=== PATIENT | male | born 1975 ===

== ENCOUNTER 2017-03-21 00:58 | Observation (INO) | payer OTHER ==
--- NOTE | 2017-03-21 02:12 | ED PDOC ---
Arrival/HPI - General Chief Complaint: Lower Extremity Problem/Injury Time Seen by Provider: 03/21/17 01:47 Historian: Patient, Gis Analyst Developer (Nurse) - History of Present Illness Narrative History of Present Illness (Text): 03/21/17 02:11 41 year old male presents to the emergency department for left lower leg swelling that began three days upon arrival. Patient reports that the swelling began at the middle and started spreading around whole lower leg. Patient denies any trauma, fever, chills, chest pain, shortness of breath, nausea, vomiting, diarrhea, urinary symptoms, back pain, neck pain, headache, dizziness , or any other complaints. PMD: None Gis Analyst Developer: Nurse Time/Duration: Other (began 3 days ago) Symptom Onset: Gradual Symptom Course: Unchanged Activities at Onset: Light Context: Home Past Medical History - Travel History Have you recently traveled outside [place] w/in the past 3 mons?: Yes - Psychiatric Hx Substance Use: No Family/Social History - Physician Review Nursing Documentation Reviewed: Yes Family/Social History: No Known Family HX Smoking Status: no Hx Alcohol Use: Yes Frequency of alcohol use: Daily Hx Substance Use: No Allergies/Home Meds Allergies/Adverse Reactions: Allergies No Known Allergies Allergy (Verified 03/21/17 01:07) Home Medications: Home Meds Medication Instructions Recorded Confirmed No Known Home Med 03/21/17 03/21/17 Review of Systems - Physician Review All systems were reviewed & negative as marked: Yes - Review of Systems Constitutional: absent: Fevers, Other (Chills) Respiratory: absent: SOB Cardiovascular: absent: Chest Pain Gastrointestinal: absent: Diarrhea, Nausea, Vomiting Genitourinary Male: absent: Dysuria, Frequency, Hematuria Musculoskeletal: Other (left lower leg swelling). absent: Back Pain, Neck Pain Neurological: absent: Headache, Dizziness Physical Exam Vital Signs Reviewed: Yes Vital Signs Temp Pulse Resp BP Pulse Ox 03/21/17 04:14 98.4 F 74 18 97/58 L 98 03/21/17 01:08 98.2 F 85 18 108/62 98 Temperature: Afebrile Blood Pressure: Normal Pulse: Regular Respiratory Rate: Normal Appearance: Positive for: Well-Appearing, Non-Toxic, Comfortable Pain Distress: None Mental Status: Positive for: Alert and Oriented X 3 - Systems Exam Head: Present: Atraumatic, Normocephalic Pupils: Present: PERRL Extroacular Muscles: Present: EOMI Conjunctiva: Present: Normal Mouth: Present: Moist Mucous Membranes Neck: Present: Normal Range of Motion Respiratory/Chest: Present: Clear to Auscultation, Good Air Exchange. No: Respiratory Distress, Accessory Muscle Use Cardiovascular: Present: Regular Rate and Rhythm, Normal S1, S2. No: Murmurs Abdomen: Present: Normal Bowel Sounds. No: Tenderness, Distention, Peritoneal Signs Back: Present: Normal Inspection Upper Extremity: Present: Normal Inspection. No: Cyanosis, Edema Lower Extremity: Present: Tenderness (diffuse left lower leg tenderness), Erythema, Other (left lower leg warm to touch ) Neurological: Present: GCS=15, CN II-XII Intact, Speech Normal Skin: Present: Warm, Dry, Normal Color. No: Rashes Psychiatric: Present: Alert, Oriented x 3, Normal Insight, Normal Concentration Medical Decision Making ED Course and Treatment: 03/21/17 02:11 Impression: 41 year old male presents for left lower leg tenderness that began three days ago. Plan: -- Labs -- Blood Cultrue -- Duplex Lower Extremity vein left Ultrasound -- Reassess and disposition Progress Notes: 03/21/17 03:25 EXAM: Duplex Lower Extremity vein left Ultrasound IMPRESSION: Negative 03/21/17 03:[address] Matta who is aware and agrees with the plan. Accepts patient into service. Patient will go to same day surgery center for left lower leg cellulitis. - Lab Interpretations Lab Results: 03/21/17 01:40 03/21/17 01:40 Lab Results 03/21/17 01:40: Sodium 142, Potassium 3.7, Chloride 102, Carbon Dioxide 25, Anion Gap 19, BUN 8, Creatinine 0.6, Est GFR ( Amer) > 60, Est GFR (Non- Af Amer) > 60, Random Glucose 92, Calcium 8.5, Total Bilirubin 0.7, AST 46, ALT 56, Alkaline Phosphatase 109, Total Protein 7.9, Albumin 4.2, Globulin 3.8, Albumin/Globulin Ratio 1.1 03/21/17 01:40: WBC 10.4, RBC 4.40, Hgb 14.3, Hct 40.5 L, MCV 92.0, MCH 32.5, MCHC 35.3, RDW 13.1, Plt Count 340, MPV 9.7, Gran % 61.5, Lymph % (Auto) 26.9, [place] % (Auto) 9.3 H, Eos % (Auto) 2.0, Baso % (Auto) 0.3, Gran # 6.37, Lymph # 2.8, [place] # 1.0 H, Eos # 0.2, Baso # 0.03 I have reviewed the lab results: Yes - RAD Interpretation Radiology Orders: 03/21/17 01:48 DUPLEX LOWER EXTRM VEIN LEFT [US] Stat - Medication Orders Current Medication Orders: Acetaminophen (Tylenol 325mg Tab) 650 mg PO Q6H PRN PRN Reason: Fever >100.4 F Heparin Sodium (Porcine) (Heparin) 5,000 units SC Q12 SAMANTHA PRN Reason: Protocol Multivitamins/Vitamin C 10 ml/Thiamine HCl 100 mg/ Folic Acid 1 mg/ Sodium Chloride 1,011.2 mls @ 100 mls/hr IV .Q10H7M ONE Stop: 03/21/17 14:18 Last Admin: 03/21/17 05:08 Dose: 100 mls/hr eMAR Start Stop Document 03/21/17 05:08 STO (Rec: 03/21/17 05:09 [id number]) Intravenous Solution Start Date 03/21/17 Start Time 05:09 Vancomycin HCl (Vancomycin 1gm) 1 gm in 250 mls @ 167 mls/hr IVPB Q12 SAMANTHA PRN Reason: Protocol Sodium Chloride (Sodium Chloride 0.9%) 1,000 mls @ 100 mls/hr IV .Q10H SAMANTHA Ketorolac Tromethamine (Toradol) 15 mg IVP Q4H PRN PRN Reason: Pain, moderate (4-7) Lorazepam (Ativan) 1 mg IVP Q3H PRN; Protocol PRN Reason: Agitation Pantoprazole Sodium (Protonix Ec Tab) 40 mg PO 0600 SAMANTHA Discontinued Medications Vancomycin HCl (Vancomycin 1gm) 1 gm in 250 mls @ 167 mls/hr IVPB STAT STA PRN Reason: Protocol Stop: 03/21/17 05:05 Last Admin: 03/21/17 03:56 Dose: 167 mls/hr eMAR Start Stop Document 03/21/17 03:56 RD (Rec: 03/21/17 03:56 RD [id number]) Intravenous Solution Start Date 03/21/17 Start Time 03:56 End Date 03/21/17 End time 05:26 Total Infusion Time 90 - Scribe Statement The provider has reviewed the documentation as recorded by the Scribe Smitha Rowell All medical record entries made by the Scribe were at my direction and personally dictated by me. I have reviewed the chart and agree that the record accurately reflects my personal performance of the history, physical exam, medical decision making, and the department course for this patient. I have also personally directed, reviewed, and agree with the discharge instructions and disposition. Disposition/Present on Arrival - Present on Arrival Any Indicators Present on Arrival: No History of DVT/PE: No History of Uncontrolled Diabetes: No Urinary Catheter: No History of Decub. Ulcer: No History Surgical Site Infection Following: None - Disposition Have Diagnosis and Disposition been Completed?: Yes Diagnosis: Left leg cellulitis Disposition: HOSPITALIZED Disposition Time: 03:10 Condition: STABLE
[2017-03-21 02:28] LABS: BASO # 0.03 K/mm3 (0.0-2.0); BASO % 0.3 % (0.0-3.0); EOS # 0.2 (0.0-0.7); GRAN # 6.37 (1.4-6.5); GRAN % 61.5 % (50.0-68.0); HEMATOCRIT 40.5 % (42.0-52.0); LYMPH # 2.8 (1.2-3.4); LYMPH % 26.9 % (22.0-35.0); MEAN CORPUSCULAR HEMOGLOBIN 32.5 pg (25.0-35.0); MEAN CORPUSCULAR HGB CONC 35.3 g/dl (31.0-37.0); MEAN PLATELET VOLUME 9.7 fl (7.0-11.0); MONO % 9.3 % (1.0-6.0); RED CELL DISTRIBUTION WIDTH 13.1 % (11.5-14.5); WHITE BLOOD COUNT 10.4 10^3/ul (4.5-11.0)
[2017-03-21 02:37] LABS: ALB/GLOB RATIO 1.1 (1.1-1.8); ALKALINE PHOSPHATASE 109 U/L (38-126); ALT/SGPT 56 U/L (7-56); AST/SGOT 46 U/L (17-59); BILIRUBIN,TOTAL 0.7 mg/dL (0.2-1.3); BLOOD UREA NITROGEN 8 mg/dL (7-21); CALCIUM 8.5 mg/dL (8.4-10.5); CARBON DIOXIDE 25 mmol/L (21-33); CHLORIDE 102 mmol/L (98-107); GFR AFRICAN-AMERICAN > 60; GLUCOSE,RANDOM 92 mg/dL (70-110); POTASSIUM 3.7 mmol/L (3.6-5.0); SODIUM 142 mmol/L (132-148); TOTAL PROTEIN 7.9 g/dL (5.8-8.3)
[2017-03-21] MEDS ORDERED: Vancomycin 1gm in NS 250ml 1 GM/250 ML BAG IVPB STA (03:36)
[2017-03-21] MEDS ORDERED: Multivitamin (MVI) 10 ML, Thiamine 100 MG, Folic Acid 1 MG in Sodium Chloride 0.9% 1,00... IV ONE (04:12)
--- NOTE | 2017-03-21 04:35 | CP.PCM.HP ---
<LAUREN HUMPHRIES - Last Filed: 03/21/17 04:19> History of Present Illness - History of Present Illness History of Present Illness: Lauren Humphries DO PGY1 - Internal Medicine H&P CC: Left leg pain and swelling HPI: 41yo Ukrainian speaking M with no significant PMH presents to ER complaining of left leg pain, swelling, and redness for the past three days. Roommate at bedside, also contributing to the history. Redness and pain started on mid- anterior funk, and has slowly spread. He also admits to left groin pain. He denies F/C, N/V/D/C, abdominal pain, dysuria, urethral discharge, CP, SOB, PRASAD, dizziness. He also denies any recent trauma, recent travel, camping/walking in tall grass or forests, insect bites, animal bites. He does report that he has dry skin and pruritis in both lower legs for past 2-3 years. Of note, he also reports the he drinks 24 beers twice a week, and has been drinking about as much daily for the past few days. His last drink was yesterday night. PMH: None PSH: None Meds: None FHx: Noncontributory Soc: Denies tobacco or illicits. Drinks 24 beers twice weekly All: NKDA ROS: Constitutional: pt denies fever, chills, generalized weakness ENT: pt denies dysphagia, otalgia, hearing deficit, rhinorrhea Eyes: pt denies sudden loss of vision, diplopia, blurred vision MSK: pt denies muscle stiffness, joint pain, extremity cramping Cardio: pt denies sob, heart murmur, CP Pulm: pt denies cough, hemoptysis, wheeze GI: pt denies loss of appetite, abdominal pain, constipation, melena, n/v/d : pt denies burning on urination, urinary frequency, hematuria, urinary urgency Neuro: pt denies paresis, paresthesia, dizziness, prasad, numbness, tingling Derm: +Pruritis, rash (leg) pt denies skin changes, lesions, nail changes Endo: pt denies intolerance to heat/cold, diaphoresis, night sweats, polydipsia Psych: pt denies anxiety, depression, mood changes Present on Admission - Present on Admission Any Indicators Present on Admission: No Past Patient History - Past Social History Smoking Status: no - PSYCHIATRIC Hx Substance Use: No Meds Allergies/Adverse Reactions: Allergies Allergy/AdvReac Type Severity Reaction Status Date / Time No Known Allergies Allergy Verified 03/21/17 01:07 Physical Exam - Constitutional Appears: Non-toxic, No Acute Distress - Head Exam Head Exam: ATRAUMATIC, NORMOCEPHALIC - Eye Exam Eye Exam: EOMI, Normal appearance, PERRL - ENT Exam ENT Exam: Mucous Membranes Moist - Neck Exam Neck exam: Negative for: Lymphadenopathy, Meningismus, Thyromegaly - Respiratory Exam Respiratory Exam: Clear to Auscultation Bilateral. absent: Rales, Rhonchi, Wheezes - Cardiovascular Exam Cardiovascular Exam: RRR, +S1, +S2 - GI/Abdominal Exam GI & Abdominal Exam: Normal Bowel Sounds, Soft. absent: Tenderness - Extremities Exam Extremities exam: Positive for: pedal edema (left), pedal pulses present. Negative for: calf tenderness Additional comments: Right leg: Anterior funk dry eczematous patches Left leg: Blanchable erythema anterior funk from ankle to knee, warm, tender, nonpitting edema foot to knee Small left shotty inguinal lymphadenopathy - Neurological Exam Neurological exam: Alert, Oriented x3 - Psychiatric Exam Psychiatric exam: Normal Affect, Normal Mood - Skin Skin Exam: Dry Additional comments: see extremity exam Results - Vital Signs Recent Vital Signs: Last Vital Signs Temp 98.2 F 03/21/17 01:08 Pulse 85 03/21/17 01:08 Resp 18 03/21/17 01:08 BP 108/62 03/21/17 01:08 Pulse Ox 98 03/21/17 01:08 - Labs Result Diagrams: 03/21/17 01:40 03/21/17 01:40 Assessment & Plan - Assessment and Plan (Free Text) Assessment: 41yo M with history of alcohol abuse presents with cellulitis of LLE Plan: 1. Left leg pain, 2/2 cellulitis - LE US in ER reportedly negative for DVT, per ER physician; pending official read - Patient afebrile, no leukocytosis at present, but left leg erythema expanding after he received a dose of vancomycin - Continue Vancomycin (d1) - IVF hydration (banana bag, then NS) - Tylenol for fever - Toradol for pain - BCx ordered, pending - ID consulted, appreciate recs 2. Alcohol abuse/withdrawal - Patient reports last drink was last night, does not currently appear intoxicated, or withdrawing - Alcohol level ordered; pending - Banana bag ordered - [facility] protocol - Ativan 1mg Q3H PRN GI/DVT Ppx Patient see, discussed, and reviewed with attending <Saumya Matta - Last Filed: 03/21/17 05:15> Results - Vital Signs Recent Vital Signs: Last Vital Signs Temp 98.2 F 03/21/17 01:08 Pulse 85 03/21/17 01:08 Resp 18 03/21/17 01:08 BP 108/62 03/21/17 01:08 Pulse Ox 98 03/21/17 01:08 - Labs Result Diagrams: 03/21/17 01:40 03/21/17 01:40 Labs: Laboratory Results - last 24 hr 03/21/17 04:09 Alcohol, Quantitative 257 H Attending/Attestation - Attestation I have personally seen and examined this patient.: Yes I have fully participated in the care of the patient.: Yes I have reviewed all pertinent clinical information: Yes Notes (Text): 03/21/17 05:14 Patient was seen with biomedical equipment specialist when he was in bed # 5 in the ER. Agree with history, physical examination, assessment and plan.
[2017-03-21 06:12] VITALS: BMI 25.4
[2017-03-21 06:21] LABS: VENOUS BLOOD GAS BASE EXCESS 2.1 mmol/L (0.0-2.0); VENOUS BLOOD PH 7.35 (7.32-7.43)
[2017-03-21 06:32] LABS: BASO # 0.03 K/mm3 (0.0-2.0); BASO % 0.4 % (0.0-3.0); EOS # 0.2 (0.0-0.7); EOS % 2.1 % (1.5-5.0); GRAN # 5.55 (1.4-6.5); GRAN % 65.5 % (50.0-68.0); HEMATOCRIT 37.7 % (42.0-52.0); LYMPH # 2.1 (1.2-3.4); LYMPH % 24.5 % (22.0-35.0); MEAN CORPUSCULAR HEMOGLOBIN 31.2 pg (25.0-35.0); MEAN PLATELET VOLUME 9.4 fl (7.0-11.0); MONO # 0.6 (0.1-0.6); MONO % 7.5 % (1.0-6.0); RED CELL DISTRIBUTION WIDTH 13.1 % (11.5-14.5); WHITE BLOOD COUNT 8.5 10^3/ul (4.5-11.0)
[2017-03-21 06:39] LABS: ALB/GLOB RATIO 1.1 (1.1-1.8); ALKALINE PHOSPHATASE 88 U/L (38-126); ALT/SGPT 52 U/L (7-56); AST/SGOT 52 U/L (17-59); BILIRUBIN,TOTAL 0.6 mg/dL (0.2-1.3); BLOOD UREA NITROGEN 8 mg/dL (7-21); CALCIUM 8.1 mg/dL (8.4-10.5); CARBON DIOXIDE 26 mmol/L (21-33); CHLORIDE 104 mmol/L (98-107); GFR AFRICAN-AMERICAN > 60; GLUCOSE,RANDOM 89 mg/dL (70-110); PHOSPHOROUS 4.1 mg/dL (2.5-4.5); POTASSIUM 3.6 mmol/L (3.6-5.0); SODIUM 143 mmol/L (132-148); TOTAL PROTEIN 7.2 g/dL (5.8-8.3)
[2017-03-21] MEDS: Pantoprazole 40 mg EC Tab PO SCH (06:53)
[2017-03-21] MEDS: Vancomycin 1gm in NS 250ml 1 GM/250 ML BAG IVPB SCH ×2 (10:09→21:20)
[2017-03-21] MEDS: Ampicillin/Sulbactam 3 GM in Sodium Chloride 0.9% 100 ML IVPB SCH ×2 (12:31→17:35)
[2017-03-21] MEDS: Sodium Chloride 0.9% 1,000 ML IV SCH (17:36)
--- NOTE | 2017-03-21 18:34 | US ---
PROCEDURE: Left lower extremity venous US HISTORY: Leg pain and swelling. Evaluate for DVT. PHYSICIAN(S): Erik Stapleton MD. TECHNIQUE: Duplex sonography and color-flow Doppler with graded compression were used to evaluate the deep venous system of the left lower extremity. FINDINGS: The visualized deep venous system of the left lower extremity is sonographically normal and compressible. Normal wave forms and augmentation are seen. There is no sonographic evidence for deep venous thrombosis in the visualized segments of the left lower extremity. IMPRESSION: 1. No sonographic evidence for deep venous thrombosis in the visualized segments of the left lower extremity.
--- NOTE | 2017-03-21 20:23 | CP.PCM.CON ---
History of Present Illness - History of Present Illness History of Present Illness: Infectious Disease Consultation: March 21, 2017 41 yo male with 3 day history of left leg pain, swelling, and erythema. Symptoms started on mid-anterior funk and spread from there to the point there is groin pain. Denies any trauma or travel history. The patient reports dry skin and eczema of the lower legs for the last 2-3 years. The patient has a heavy EtOH use history with 24 beers twice a week. PMHx: eczema PSHx: None given Allergies: NKDA Social Hx: No tobacco or illicit drug use. Heavy EtOH use of 24 beers twice weekly. Active Medications Acetaminophen (Tylenol 325mg Tab) 650 mg PO Q6H PRN PRN Reason: Fever >100.4 F Heparin Sodium (Porcine) (Heparin) 5,000 units SC Q12 SAMANTHA PRN Reason: Protocol Last Admin: 03/21/17 10:09 Dose: 5,000 units Vancomycin HCl (Vancomycin 1gm) 1 gm in 250 mls @ 167 mls/hr IVPB Q12 SAMANTHA PRN Reason: Protocol Last Admin: 03/21/17 10:09 Dose: 167 mls/hr Sodium Chloride (Sodium Chloride 0.9%) 1,000 mls @ 100 mls/hr IV .Q10H SAMANTHA Last Admin: 03/21/17 17:36 Dose: 100 mls/hr Ampicillin Sodium/Sulbactam (Sodium 3 gm/ Sodium Chloride) 100 mls @ 200 mls/ hr IVPB Q6 SAMANTHA PRN Reason: Protocol Last Admin: 03/21/17 17:35 Dose: 200 mls/hr Ketorolac Tromethamine (Toradol) 15 mg IVP Q4H PRN PRN Reason: Pain, moderate (4-7) Lorazepam (Ativan) 1 mg IVP Q3H PRN; Protocol PRN Reason: Agitation Pantoprazole Sodium (Protonix Ec Tab) 40 mg PO 0600 [facility] Last Admin: 03/21/17 06:53 Dose: 40 mg Family Hx: none given ROS: Left leg pain, gait abnormalities. No fevers, chills, nausea, vomiting, diarrhea, headaches,dizziness, chest pain, abdominal pain, melena, hematuria, hematemesis, hematochezia, depression, anxiety. Past Patient History - Past Social History Smoking Status: no - CARDIAC Hx Cardiac Disorders: No - PULMONARY Hx Respiratory Disorders: No - NEUROLOGICAL Hx Neurological Disorder: No - HEENT Hx HEENT Problems: No - RENAL Hx Chronic Kidney Disease: No - ENDOCRINE/METABOLIC Hx Endocrine Disorders: No - HEMATOLOGICAL/ONCOLOGICAL Hx Blood Disorders: No - INTEGUMENTARY Hx Dermatological Problems: No - MUSCULOSKELETAL/RHEUMATOLOGICAL Hx Musculoskeletal Disorders: No - GASTROINTESTINAL Hx Gastrointestinal Disorders: No - GENITOURINARY/GYNECOLOGICAL Hx Genitourinary Disorders: No - PSYCHIATRIC Hx Substance Use: No - SURGICAL HISTORY Hx Surgeries: No Meds Allergies/Adverse Reactions: Allergies Allergy/AdvReac Type Severity Reaction Status Date / Time No Known Allergies Allergy Verified 03/21/17 01:07 - Medications Medications: Current Medications Acetaminophen (Tylenol 325mg Tab) 650 mg PO Q6H PRN PRN Reason: Fever >100.4 F Heparin Sodium (Porcine) (Heparin) 5,000 units SC Q12 SAMANTHA PRN Reason: Protocol Last Admin: 03/21/17 10:09 Dose: 5,000 units Vancomycin HCl (Vancomycin 1gm) 1 gm in 250 mls @ 167 mls/hr IVPB Q12 SAMANTHA PRN Reason: Protocol Last Admin: 03/21/17 10:09 Dose: 167 mls/hr Sodium Chloride (Sodium Chloride 0.9%) 1,000 mls @ 100 mls/hr IV .Q10H [facility] Last Admin: 03/21/17 17:36 Dose: 100 mls/hr Ampicillin Sodium/Sulbactam (Sodium 3 gm/ Sodium Chloride) 100 mls @ 200 mls/ hr IVPB Q6 SAMANTHA PRN Reason: Protocol Last Admin: 03/21/17 17:35 Dose: 200 mls/hr Ketorolac Tromethamine (Toradol) 15 mg IVP Q4H PRN PRN Reason: Pain, moderate (4-7) Lorazepam (Ativan) 1 mg IVP Q3H PRN; Protocol PRN Reason: Agitation Pantoprazole Sodium (Protonix Ec Tab) 40 mg PO 0600 [facility] Last Admin: 03/21/17 06:53 Dose: 40 mg Physical Exam - Constitutional Appears: Non-toxic, No Acute Distress - Head Exam Head Exam: ATRAUMATIC, NORMOCEPHALIC - Eye Exam Eye Exam: EOMI, PERRL Pupil Exam: NORMAL ACCOMODATION, PERRL - ENT Exam ENT Exam: Mucous Membranes Moist, Normal External Ear Exam, TM's Normal Bilaterally - Neck Exam Neck exam: Positive for: Full Rom, Normal Inspection - Respiratory Exam Respiratory Exam: Clear to Auscultation Bilateral, NORMAL BREATHING PATTERN. absent: Rales, Rhonchi, Wheezes - Cardiovascular Exam Cardiovascular Exam: REGULAR RHYTHM, RRR, +S1, +S2 - GI/Abdominal Exam GI & Abdominal Exam: Normal Bowel Sounds, Soft. absent: Distended, Tenderness - Extremities Exam Extremities exam: Positive for: joint swelling, pedal edema Additional comments: Right leg: Anterior funk dry eczematous patches Left leg: Blanchable erythema anterior funk from ankle to knee, warm, tender, nonpitting edema foot to knee. Small left shotty inguinal lymphadenopathy. - Neurological Exam Neurological exam: Alert, CN II-XII Intact, Oriented x3 - Psychiatric Exam Psychiatric exam: Normal Affect, Normal Mood - Skin Additional comments: As above. Results - Vital Signs Recent Vital Signs: Last Vital Signs Temp 97.8 F 03/21/17 16:00 Pulse 84 03/21/17 16:00 Resp 18 03/21/17 16:00 BP 120/76 03/21/17 16:00 Pulse Ox 98 03/21/17 16:00 - Labs Result Diagrams: 03/21/17 06:00 03/21/17 06:00 Labs: Laboratory Results - last 24 hr 03/21/17 03/21/17 03/21/17 04:09 06:00 06:00 WBC 8.5 RBC 4.10 Hgb 12.8 L Hct 37.7 L MCV 92.0 MCH 31.2 MCHC 34.0 RDW 13.1 Plt Count 327 MPV 9.4 Gran % 65.5 Lymph % (Auto) 24.5 [place] % (Auto) 7.5 H Eos % (Auto) 2.1 Baso % (Auto) 0.4 Gran # 5.55 Lymph # 2.1 [place] # 0.6 Eos # 0.2 Baso # 0.03 pO2 VBG pH VBG pCO2 VBG HCO3 VBG Total CO2 VBG O2 Sat (Calc) VBG Base Excess VBG Potassium Sodium 143 Chloride 104 Glucose Lactate FiO2 Potassium 3.6 Carbon Dioxide 26 Anion Gap 17 BUN 8 Creatinine 0.5 Est GFR ( Amer) > 60 Est GFR (Non-Af Amer) > 60 Random Glucose 89 Calcium 8.1 L Phosphorus 4.1 Magnesium 2.0 Total Bilirubin 0.6 AST 52 ALT 52 Alkaline Phosphatase 88 Total Protein 7.2 Albumin 3.7 Globulin 3.5 Albumin/Globulin Ratio 1.1 Venous Blood Potassium Alcohol, Quantitative 257 H 03/21/17 06:00 WBC RBC Hgb Hct MCV MCH MCHC RDW Plt Count MPV Gran % Lymph % (Auto) [place] % (Auto) Eos % (Auto) Baso % (Auto) Gran # Lymph # [place] # Eos # Baso # pO2 64 H VBG pH 7.35 VBG pCO2 52.0 VBG HCO3 28.7 H VBG Total CO2 30.3 H VBG O2 Sat (Calc) 93.7 H VBG Base Excess 2.1 H VBG Potassium 3.6 Sodium 139.0 Chloride 105.0 Glucose 91 Lactate 1.9 FiO2 21.0 Potassium Carbon Dioxide Anion Gap BUN Creatinine Est GFR ( Amer) Est GFR (Non-Af Amer) Random Glucose Calcium Phosphorus Magnesium Total Bilirubin AST ALT Alkaline Phosphatase Total Protein Albumin Globulin Albumin/Globulin Ratio Venous Blood Potassium 3.6 Alcohol, Quantitative Assessment & Plan - Assessment and Plan (Free Text) Assessment: 41 yo male with left leg cellulitis and history of eczema of the legs and EtOH abuse. The patient was started on IV Vancomycin and Unasyn for antibiotic coverage. No leukocytosis or fevers. Supportive care. Local wound and skin care. Thank you for allowing me to participate in the care of the patient, we will follow with you.
[2017-03-22] MEDS: Ampicillin/Sulbactam 3 GM in Sodium Chloride 0.9% 100 ML IVPB SCH ×4 (00:04→18:39)
[2017-03-22] MEDS: Sodium Chloride 0.9% 1,000 ML IV SCH (06:07)
[2017-03-22] MEDS: Pantoprazole 40 mg EC Tab PO SCH (06:18)
[2017-03-22 07:09] LABS: BASO # 0.05 K/mm3 (0.0-2.0); BASO % 0.5 % (0.0-3.0); EOS # 0.2 (0.0-0.7); EOS % 2.4 % (1.5-5.0); GRAN # 6.05 (1.4-6.5); GRAN % 65.4 % (50.0-68.0); LYMPH # 2.1 (1.2-3.4); MEAN CELL VOLUME 92.2 fl (80.0-105.0); MEAN CORPUSCULAR HEMOGLOBIN 31.4 pg (25.0-35.0); MEAN CORPUSCULAR HGB CONC 34.1 g/dl (31.0-37.0); MEAN PLATELET VOLUME 9.5 fl (7.0-11.0); MONO # 0.8 (0.1-0.6); MONO % 8.7 % (1.0-6.0); WHITE BLOOD COUNT 9.3 10^3/ul (4.5-11.0)
[2017-03-22 07:40] LABS: ALKALINE PHOSPHATASE 85 U/L (38-126); ALT/SGPT 50 U/L (7-56); AST/SGOT 44 U/L (17-59); BLOOD UREA NITROGEN 9 mg/dL (7-21); CALCIUM 8.4 mg/dL (8.4-10.5); CARBON DIOXIDE 34 mmol/L (21-33); CHLORIDE 100 mmol/L (98-107); GFR AFRICAN-AMERICAN > 60; GLUCOSE,RANDOM 87 mg/dL (70-110); SODIUM 140 mmol/L (132-148); TOTAL PROTEIN 6.8 g/dL (5.8-8.3)
[2017-03-22] MEDS: Vancomycin 1gm in NS 250ml 1 GM/250 ML BAG IVPB SCH (09:48)
--- NOTE | 2017-03-22 14:21 | CP.PCM.DIS ---
<Dru Schwarz - Last Filed: 03/22/17 17:43> Provider - Provider Date of Admission: 03/21/17 03:38 Attending physician: Marcial Fernandez MD Primary care physician: NO PRIMARY CARE PROVIDER Consults: ID: Dr. Magana Time Spent in preparation of Discharge (in minutes): 45 Hospital Course - Lab Results Lab Results: Most Recent Lab Values WBC 9.3 10^3/ul (4.5-11.0) 03/22/17 07:04 RBC 4.23 10^6/uL (3.5-6.1) 03/22/17 07:04 Hgb 13.3 g/dL (14.0-18.0) L 03/22/17 07:04 Hct 39.0 % (42.0-52.0) L 03/22/17 07:04 MCV 92.2 fl (80.0-105.0) 03/22/17 07:04 MCH 31.4 pg (25.0-35.0) 03/22/17 07:04 MCHC 34.1 g/dl (31.0-37.0) 03/22/17 07:04 RDW 13.0 % (11.5-14.5) 03/22/17 07:04 Plt Count 346 10^3/uL (120.0-450.0) 03/22/17 07:04 MPV 9.5 fl (7.0-11.0) 03/22/17 07:04 Gran % 65.4 % (50.0-68.0) 03/22/17 07:04 Lymph % (Auto) 23.0 % (22.0-35.0) 03/22/17 07:04 Sibley % (Auto) 8.7 % (1.0-6.0) H 03/22/17 07:04 Eos % (Auto) 2.4 % (1.5-5.0) 03/22/17 07:04 Baso % (Auto) 0.5 % (0.0-3.0) 03/22/17 07:04 Gran # 6.05 (1.4-6.5) 03/22/17 07:04 Lymph # 2.1 (1.2-3.4) 03/22/17 07:04 Sibley # 0.8 (0.1-0.6) H 03/22/17 07:04 Eos # 0.2 (0.0-0.7) 03/22/17 07:04 Baso # 0.05 K/mm3 (0.0-2.0) 03/22/17 07:04 pO2 64 mm/Hg (30-55) H 03/21/17 06:00 VBG pH 7.35 (7.32-7.43) 03/21/17 06:00 VBG pCO2 52.0 (40-60) 03/21/17 06:00 VBG HCO3 28.7 mmol/l (21-28) H 03/21/17 06:00 VBG Total CO2 30.3 mmol.L (22-28) H 03/21/17 06:00 VBG O2 Sat (Calc) 93.7 % (40-65) H 03/21/17 06:00 VBG Base Excess 2.1 mmol/L (0.0-2.0) H 03/21/17 06:00 VBG Potassium 3.6 mmol/L (3.6-5.2) 03/21/17 06:00 Sodium 139.0 mmol/L (132-148) 03/21/17 06:00 Chloride 105.0 mmol/L (98-107) 03/21/17 06:00 Glucose 91 mg/dl (75-110) 03/21/17 06:00 Lactate 1.9 mmol/L (0.7-2.1) 03/21/17 06:00 FiO2 21.0 % 03/21/17 06:00 Sodium 140 mmol/L (132-148) 03/22/17 07:04 Potassium 4.0 mmol/L (3.6-5.0) 03/22/17 07:04 Chloride 100 mmol/L (98-107) 03/22/17 07:04 Carbon Dioxide 34 mmol/L (21-33) H 03/22/17 07:04 Anion Gap 10 (10-20) 03/22/17 07:04 BUN 9 mg/dL (7-21) 03/22/17 07:04 Creatinine 0.6 mg/dL (0.5-1.4) 03/22/17 07:04 Est GFR ( Amer) > 60 03/22/17 07:04 Est GFR (Non-Af Amer) > 60 03/22/17 07:04 Random Glucose 87 mg/dL (70-110) 03/22/17 07:04 Calcium 8.4 mg/dL (8.4-10.5) 03/22/17 07:04 Phosphorus 4.1 mg/dL (2.5-4.5) 03/21/17 06:00 Magnesium 2.0 mg/dL (1.7-2.2) 03/21/17 06:00 Total Bilirubin 1.0 mg/dL (0.2-1.3) 03/22/17 07:04 AST 44 U/L (17-59) 03/22/17 07:04 ALT 50 U/L (7-56) 03/22/17 07:04 Alkaline Phosphatase 85 U/L (38-126) 03/22/17 07:04 Total Protein 6.8 g/dL (5.8-8.3) 03/22/17 07:04 Albumin 3.4 g/dL (3.0-4.8) 03/22/17 07:04 Globulin 3.4 gm/dL 03/22/17 07:04 Albumin/Globulin Ratio 1.0 (1.1-1.8) L 03/22/17 07:04 Venous Blood Potassium 3.6 mmol/L (3.6-5.2) 03/21/17 06:00 Alcohol, Quantitative 257 mg/dL (0-10) H 03/21/17 04:09 - Hospital Course Hospital Course: Upon Admission: 41yo M with no significant PMHx here for evaluation of left lower extremity swelling and pain. Patient was admitted overnight for IV Abx and observation. ID consult was obtained. Patient received one day of inpatient IV Abx. Patient also reports binge ETOH use over the weekends. No clinical signs of withdrawal observed. Patient remained afebrile with no leukocytosis. Discussed case with ID who agreed with out-patient management with Oral abx regimen. Discussed plan with patient in detail. Discussed importance of completing the prescribed abx regimen. Discussed alcohol abstinence. Patient to follow up with [facility] (formerly [facility] Patient understands and agrees with plan. 1. LLE cellulitis. Discharged on PO Abx 2. ETOH Abuse. Cessation counseling given Upon Discharge: Patient is cleared for discharge as per Dr. Fernandez 1. Follow up with [facility] at . Call for appointment. 2. Take prescriptions as prescribed. (Sent to [facility]) 3. Return to the ER with any concerning symptoms New Prescriptions: 1. Amoxicilin 875mg PO q12 x10 days 2. Doxycycline 100mg PO q12 x 7 days Discharge Exam - Head Exam Head Exam: ATRAUMATIC, NORMAL INSPECTION, NORMOCEPHALIC - Eye Exam Eye Exam: EOMI, Normal appearance - ENT Exam ENT Exam: Mucous Membranes Moist - Neck Exam Neck exam: Full Rom - Respiratory Exam Respiratory Exam: Clear to PA & Lateral, NORMAL BREATHING PATTERN, UNREMARKABLE. absent: Wheezes, Respiratory Distress - Cardiovascular Exam Cardiovascular Exam: RRR. absent: JVD - GI/Abdominal Exam GI & Abdominal Exam: Soft, Unremarkable. absent: Distended, Firm, Guarding, Hernia, Tenderness - Extremities Exam Additional comments: Right lower extremity: Dry ezematous patch over lower funk Left Lower extremigy: Dry ezematous patch over lower funk. Redness below knee to ankle. mild tenderness to palpation. Mild swelling - Neurological Exam Neurological exam: Alert, CN II-XII Intact, Oriented x3 - Psychiatric Exam Psychiatric exam: Normal Affect, Normal Mood Discharge Plan - Discharge Medications Prescriptions: Amoxicillin 875 mg PO Q12 #20 tablet Doxycycline Hyclate 100 mg PO Q12 #14 capsule - Follow Up Plan Condition: STABLE Disposition: HOME/ ROUTINE Additional Instructions: Patient is cleared for discharge as per Dr. Fernandez 1. Follow up with [facility] at . Call for appointment. 2. Take prescriptions as prescribed. (Sent to [facility]) 3. Return to the ER with any concerning symptoms New Prescriptions: 1. Amoxicilin 875mg PO q12 x10 days 2. Doxycycline 100mg PO q12 x 7 days Referrals: [facility] [Outside] PCP,NO [Primary Care Provider] - <Marcial Fernandez - Last Filed: 03/22/17 18:24> Provider - Provider Date of Admission: 03/21/17 03:38 Attending physician: Marcial Fernandez MD Primary care physician: NO PRIMARY CARE PROVIDER Hospital Course - Lab Results Lab Results: Most Recent Lab Values WBC 9.3 10^3/ul (4.5-11.0) 03/22/17 07:04 RBC 4.23 10^6/uL (3.5-6.1) 03/22/17 07:04 Hgb 13.3 g/dL (14.0-18.0) L 03/22/17 07:04 Hct 39.0 % (42.0-52.0) L 03/22/17 07:04 MCV 92.2 fl (80.0-105.0) 03/22/17 07:04 MCH 31.4 pg (25.0-35.0) 03/22/17 07:04 MCHC 34.1 g/dl (31.0-37.0) 03/22/17 07:04 RDW 13.0 % (11.5-14.5) 03/22/17 07:04 Plt Count 346 10^3/uL (120.0-450.0) 03/22/17 07:04 MPV 9.5 fl (7.0-11.0) 03/22/17 07:04 Gran % 65.4 % (50.0-68.0) 03/22/17 07:04 Lymph % (Auto) 23.0 % (22.0-35.0) 03/22/17 07:04 Sibley % (Auto) 8.7 % (1.0-6.0) H 03/22/17 07:04 Eos % (Auto) 2.4 % (1.5-5.0) 03/22/17 07:04 Baso % (Auto) 0.5 % (0.0-3.0) 03/22/17 07:04 Gran # 6.05 (1.4-6.5) 03/22/17 07:04 Lymph # 2.1 (1.2-3.4) 03/22/17 07:04 Sibley # 0.8 (0.1-0.6) H 03/22/17 07:04 Eos # 0.2 (0.0-0.7) 03/22/17 07:04 Baso # 0.05 K/mm3 (0.0-2.0) 03/22/17 07:04 pO2 64 mm/Hg (30-55) H 03/21/17 06:00 VBG pH 7.35 (7.32-7.43) 03/21/17 06:00 VBG pCO2 52.0 (40-60) 03/21/17 06:00 VBG HCO3 28.7 mmol/l (21-28) H 03/21/17 06:00 VBG Total CO2 30.3 mmol.L (22-28) H 03/21/17 06:00 VBG O2 Sat (Calc) 93.7 % (40-65) H 03/21/17 06:00 VBG Base Excess 2.1 mmol/L (0.0-2.0) H 03/21/17 06:00 VBG Potassium 3.6 mmol/L (3.6-5.2) 03/21/17 06:00 Sodium 139.0 mmol/L (132-148) 03/21/17 06:00 Chloride 105.0 mmol/L (98-107) 03/21/17 06:00 Glucose 91 mg/dl (75-110) 03/21/17 06:00 Lactate 1.9 mmol/L (0.7-2.1) 03/21/17 06:00 FiO2 21.0 % 03/21/17 06:00 Sodium 140 mmol/L (132-148) 03/22/17 07:04 Potassium 4.0 mmol/L (3.6-5.0) 03/22/17 07:04 Chloride 100 mmol/L (98-107) 03/22/17 07:04 Carbon Dioxide 34 mmol/L (21-33) H 03/22/17 07:04 Anion Gap 10 (10-20) 03/22/17 07:04 BUN 9 mg/dL (7-21) 03/22/17 07:04 Creatinine 0.6 mg/dL (0.5-1.4) 03/22/17 07:04 Est GFR ( Amer) > 60 03/22/17 07:04 Est GFR (Non-Af Amer) > 60 03/22/17 07:04 Random Glucose 87 mg/dL (70-110) 03/22/17 07:04 Calcium 8.4 mg/dL (8.4-10.5) 03/22/17 07:04 Phosphorus 4.1 mg/dL (2.5-4.5) 03/21/17 06:00 Magnesium 2.0 mg/dL (1.7-2.2) 03/21/17 06:00 Total Bilirubin 1.0 mg/dL (0.2-1.3) 03/22/17 07:04 AST 44 U/L (17-59) 03/22/17 07:04 ALT 50 U/L (7-56) 03/22/17 07:04 Alkaline Phosphatase 85 U/L (38-126) 03/22/17 07:04 Total Protein 6.8 g/dL (5.8-8.3) 03/22/17 07:04 Albumin 3.4 g/dL (3.0-4.8) 03/22/17 07:04 Globulin 3.4 gm/dL 03/22/17 07:04 Albumin/Globulin Ratio 1.0 (1.1-1.8) L 03/22/17 07:04 Venous Blood Potassium 3.6 mmol/L (3.6-5.2) 03/21/17 06:00 Alcohol, Quantitative 257 mg/dL (0-10) H 03/21/17 04:09 Attending/Attestation - Attestation I have personally seen and examined this patient.: Yes I have fully participated in the care of the patient.: Yes I have reviewed all pertinent clinical information, including history, physical exam and plan: Yes Notes (Text): 03/22/17 18:20 41 year old male with past medical history of alcohol abuse who presented with left leg cellulitis. 'He was started on iv antibiotics with improvement of symptoms. He was counselled on alcohol abstinence. He is not exhibiting any withdrawal signs or symptoms. Patient is discharged home on po antibiotics. Follow up with pmd or [facility]. Marcial Fernandez MD Hospitalist.
[2017-03-22 20:26] VITALS: BP 117/75; PULSE 74; RESP 20; TEMP 99.1; O2SAT 97
--- NOTE | 2017-03-22 21:43 | CP.PCM.PN ---
Subjective - Date & Time of Evaluation Date of Evaluation: 03/22/17 Time of Evaluation: 18:00 - Subjective Subjective: Infectious Disease Follow Up: March 22, 2017 41 yo male with 3 day history of left leg pain, swelling, and erythema. Symptoms started on mid-anterior funk and spread from there to the point there is groin pain. Denies any trauma or travel history. The patient reports dry skin and eczema of the lower legs for the last 2-3 years. The patient has a heavy EtOH use history with 24 beers twice a week. Erythema of the legs improving. Objective - Vital Signs/Intake and Output Vital Signs (last 24 hours): Temp Pulse Resp BP Pulse Ox 99.1 F 74 20 117/75 97 03/22/17 16:00 03/22/17 16:00 03/22/17 16:00 03/22/17 16:00 03/22/17 16:00 - Labs Labs: 03/22/17 07:04 03/22/17 07:04 - Constitutional Appears: Non-toxic, No Acute Distress - Head Exam Head Exam: ATRAUMATIC, NORMOCEPHALIC - Eye Exam Eye Exam: EOMI, PERRL Pupil Exam: NORMAL ACCOMODATION, PERRL - ENT Exam ENT Exam: Mucous Membranes Moist, Normal External Ear Exam, TM's Normal Bilaterally - Neck Exam Neck Exam: Full ROM, Normal Inspection - Respiratory Exam Respiratory Exam: Clear to Ausculation Bilateral, NORMAL BREATHING PATTERN. absent: Rales, Rhonchi, Wheezes - Cardiovascular Exam Cardiovascular Exam: REGULAR RHYTHM, RRR, +S1, +S2 - GI/Abdominal Exam GI & Abdominal Exam: Soft, Normal Bowel Sounds. absent: Distended, Tenderness - Extremities Exam Extremities Exam: Joint Swelling, Pedal Edema Additional comments: Right leg: Anterior funk dry eczematous patches Left leg: Blanchable erythema anterior funk from ankle to knee, warm, tender, nonpitting edema foot to knee. Small left shotty inguinal lymphadenopathy. - Neurological Exam Neurological Exam: Alert, Awake, CN II-XII Intact, Oriented x3 - Psychiatric Exam Psychiatric exam: Normal Affect, Normal Mood - Skin Additional comments: As in extremity exam Assessment and Plan - Assessment and Plan (Free Text) Assessment: 41 yo male with left leg cellulitis and history of eczema of the legs and EtOH abuse. The patient was started on IV Vancomycin and Unasyn for antibiotic coverage. No leukocytosis or fevers. Supportive care. Local wound and skin care. When ready, can discharge with Augmentin and Doxycycline for 7-10 more days. Thank you for allowing me to participate in the care of the patient, we will follow with you.
== END 2017-03-22 20:38 | disposition home or self-care (01) ==
LOC: ED 00:58 → ERH 03:38 → 5RSO 04:38
PROVIDERS: ADMIT Internal Medicine; ATTEND Internal Medicine
DX: L03.116 Cellulitis of left lower limb (principal); F10.10 Alcohol abuse, uncomplicated; L29.9 Pruritus, unspecified; R40.2412 Glasgow coma scale score 13-15, at arrival to emergency department; L30.9 Dermatitis, unspecified
CPT/HCPCS: 36415; 80053; 80320; 82803; 83735; 84100; 85025; 87040; 93971; 96365; 99284; G0378; J0295; J1644; J1885; J3411; J7040